=== PATIENT | female | born 1965 | race Caucasian/White ===

== ENCOUNTER → 2020-09-03 | Outpatient (CLI) | payer BC, MEDICARE ==
[~2020-09-03] MED LIST: ASCO125T PO; ESCITALOPRAM OX10 MG PO; HYDR-2759 PO; OMEG1CAP27 PO; PRED1TAB3 PO; VITA0.4T17 PO; hormone troche; vitamin D
== END ==
LOC: LAB 13:57
PROVIDERS: ATTEND Surgery
DX: Z01.812 Encounter for preprocedural laboratory examination (principal); K82.9 Disease of gallbladder, unspecified; Z88.5 Allergy status to narcotic agent; Z20.822 Contact with and (suspected) exposure to COVID-19
CPT/HCPCS: U0003

== ENCOUNTER 2020-09-06 07:50 | Day surgery (SDC) | payer BC, MEDICARE ==
[~2020-09-06] VITALS: Ht 167.6 cm; Wt 62.0 kg
[~2020-09-06 07:50] MED LIST changes: -HYDR-2759 PO; +HYDROmorphone 2 MG/ML VIAL IVP PRN; +MORPHINE SULFATE 2 MG/ML VIAL. IVP PRN; +PROCHLORPERAZINE 10 MG/2 ML VIAL. IVP PRN; +fentaNYL PF VIAL 100 MCG/2 ML VIAL IVP PRN
[2020-09-06] MEDS ORDERED: ROCURONIUM 50 MG/5 ML VIAL. ONE (08:07)
[2020-09-06] MEDS ORDERED: fentaNYL PF VIAL 100 MCG/2 ML VIAL ONE (08:07)
[2020-09-06] MEDS ORDERED: LIDOCAINE 2% PF 5 ML VIAL. ONE (08:08)
[2020-09-06] MEDS ORDERED: MIDAZOLAM HCL/PF 2 MG/2 ML VIAL. ONE (08:08)
[2020-09-06] MEDS ORDERED: KETOROLAC 30 MG/ML VIAL. ONE (08:08)
[2020-09-06] MEDS ORDERED: DEXAMETHASONE SOD PHOS 4 MG/ML VIAL ONE (08:08)
[2020-09-06] MEDS ORDERED: ONDANSETRON PF 4 MG/2 ML VIAL. ONE (08:08)
[2020-09-06] MEDS ORDERED: PROPOFOL 10 MG/ML (20ML) VIAL. IV ONE (08:08)
[2020-09-06] MEDS ORDERED: SEVOFLURANE 61 TO 120 MINUTES. IH ONE (08:09)
[2020-09-06] MEDS: IV RINGERS,LACTATED 1000ML 1,000 ML IV SCH ×2 (08:16→10:39)
[2020-09-06] MEDS ORDERED: SURGICEL HEMOSTAT 4X8 EACH. ONE (08:37)
[2020-09-06] MEDS ORDERED: IOHEXOL 300 MG/ML 50 ML VIAL. ONE (08:37)
[2020-09-06] MEDS ORDERED: BUPIVACAINE MPF 0.5% 30 ML VIAL. ONE (08:37)
[2020-09-06] MEDS ORDERED: GLYCOPYRROLATE 1 MG/5 ML VIAL. ONE (08:58)
[2020-09-06] MEDS ORDERED: NEOSTIGMINE METHYLSULFATE 5 MG/5 ML SYRINGE. ONE (08:58)
[2020-09-06] MEDS ORDERED: SUGAMMADEX SODIUM 200 MG/2 ML VIAL. IVP ONE (09:30)
--- NOTE | 2020-09-06 09:39 | PDOC4 ---
Operative Note Operative Note Operative Note: Preoperative Diagnosis: Chronic cholecystitis Postoperative Diagnosis: Same Procedure: Laparoscopic cholecystectomy with intraoperative cholangiogram Surgeons: Dejuan Podiatric Physician: Sanju POLLOCK Anesthesia: Gen. Estimated Blood Loss: 10 mL Specimen: Gallbladder to pathology Drains: None Complications: None Indications: The patient is a 55-year-old female who underwent evaluation for right-sided abdominal pain. A HIDA scan was performed that raise concern for chronic cholecystitis. Surgical treatment was offered by means of a laparo scopic cholecystectomy. The risks of surgery were discussed which include bleeding, infection, bile duct injury, bile leak, pain, the potential for additional surgeries or procedures. The patient understands and would like to proceed. Description: The patient was taken to the operating room and laid supine on the operating table. General anesthesia was performed. The abdomen was prepped with ChloraPrep and draped in a standard surgical fashion. A small infraumbilical incision was made with a scalpel. The Veress needle was then inserted and a pneumoperitoneum was then created. A 5 mm trocar was then inserted and the laparoscope was introduced. In the upper midabdomen a 5 mm trocar was inserted and in the right upper quadrant two 2.3 mm mini lap graspers were inserted. The gallbladder was retracted cephalad. The cystic duct was dissected free from surrounding tissues. One clip was placed on the duct near the gallbladder junction. An opening was made in the duct and a cholangiocatheter placed within and secured with a clip. Using contrast dye and fluoroscopy an intraoperative cholangiogram was performed that appeared unre markable. The clip and catheter were then withdrawn. Three clips were placed on the cystic duct and it was divided. The cystic artery was then identified, dissected free, doubly clipped and divided as well. The gallbladder was then mobilized away from the liver with cautery. The umbilical 5 millimeter trocar was exchanged for an 11 millimeter trocar. The gallbladder was then placed in an endoscopic bag and extracted at the umbilical trocar site. The fascia there was closed with an 0 Vicryl suture and infiltrated with 0.5% marcaine. All blood and irrigation fluid was suctioned and hemostasis was good. The remaining ports were removed and the pneumoperitoneum was relieved. The skin incisions were closed using 4-0 Monocryl suture. Steri-Strips and dressings were then applied. The patient tolerated the procedure well and was sent to the recovery room in stable condition. At the end of the case all counts were correct. JENNIFER LEAL MD Sep 06, 2020 09:39
--- NOTE | 2020-09-06 09:41 | DISCH ---
DISCHARGE INSTRUCTIONS Condition on Discharge Condition on Discharge: Stable Activity After Discharge Activity Instructions for Disc: Other, see below (No lifting over 20 lbs, s trenuous activity X 2 weeks) Driving Instructions after Dis: Other, see below (No driving while taking pain meds) Diet after Discharge Diet after Discharge: Regular Wound Incision Care Wound/Incision Care: Other, see below (may remove bandaids tomorrow and shower, steristrips fall of by themselves) Follow-Up Follow up with: Dr Leal in 2 weeks in office, call for appointment [phone] JENNIFER LEAL MD Sep 06, 2020 09:41
--- NOTE | 2020-09-06 09:42 | RAD ---
Intraoperative cholangiogram INDICATION: Cholangiogram in OR with C-arm. COMPARISON: None. FINDINGS: A total of 16 seconds of fluoroscopy time was provided with acquisition of 2 images during intraopera tive cholangiography. 2 images show filling of the common bile duct and portions of the intrahepatic biliary tree as well as evidence of partial filling of the pancreatic duct. There is opacification of the descending duodenum. IMPRESSION: No evidence of a stone in the common bile duct. Electronically signed by: Casey Alberto MD (09/06/2020 9:40 AM) [id number]
[2020-09-06] MEDS ORDERED: HYDR-2759 PO (10:00)
[2020-09-06] MEDS ORDERED: HYDROcodone/APAP 5/325MG 1 TAB TABLET PO ONE ×2 (10:00)
[2020-09-06] MEDS: fentaNYL PF VIAL 100 MCG/2 ML VIAL IVP PRN ×4 (10:04→10:42)
[2020-09-06 11:20] VITALS: BP 110/66
--- NOTE | 2020-09-07 16:06 | PATHOLOGY ---
[facility] Accession Number: [id number] . 01 Material submitted: . gallbladder - GALLBLADDER AND CONTENTS . 01 Clinical history: . GALLBLADDER DISEASE CHOLECYSTECTOMY . 02 Diagnosis: Gallbladder, cholecystectomy: - Chronic cholecystitis. (M:[facility] 09/07/2020) [facility] 09/07/2020 1327 Local . 02 Comment: There are no calculi identified within the gallbladder lumen or specimen container. There is no evidence of malignancy. (M:[facility] 09/07/2020) . 02 Electronically signed: . Tee Devlin MD, Pathologist NPI- [id number] . 01 Gross description: . The specimen is received in formalin, labeled "Jojo Ferraro gallbladder and contents" and consists of a 6 x 2.5 x 2 cm soft hsah green gallbladder with cystic duct luminal diameter of 0.1 cm. The cystic duct margin is inked black. On opening, no stones are identified. Green viscous bile is noted. The mucosa is velvety with prominent submucosal vessels. The wall measures up to 0.2 cm. Rod Hanger sections are submitted in cassette A1.([facility]; 09/06/2020) [facility] 09/07/2020 1325 Local . 02 Pathologist provided ICD-10: K81.1 . 02 CPT . 084423 Specimen Comment: A courtesy copy of this report has been sent to [phone], [phone] Specimen Comment: [id number] Specimen Comment: Report sent to / DR LEE Performed at: 01 [facility] [address], [place], [place] [id number] MD Eric España MD Phone: [phone] Performed at: 02 [facility] [address], [place] [id number] MD Tee Devlin MD Phone: [phone]
== END 2020-09-06 14:30 | disposition home or self-care (01) ==
LOC: SURG 07:50 → EDUNIT# 09:30 → SURG 14:30
PROVIDERS: ATTEND Surgery
DX: K81.1 Chronic cholecystitis (principal); Z79.899 Other long term (current) drug therapy; Z98.890 Other specified postprocedural states; Z72.89 Other problems related to lifestyle; Z88.8 Allergy status to other drugs, medicaments and biological substances; Z88.5 Allergy status to narcotic agent
CPT/HCPCS: 47563; 74300; A4213; A4314; A4364; A4930; A6219; C1887; J0690; J1100; J1885; J2250; J2405; J2704; J3010; J3490; Q9967; 88304; A4452; A4657; J2710

== ENCOUNTER 2020-09-17 15:14 | Emergency (ER) | payer BC, MEDICARE ==
[~2020-09-17] VITALS: Ht 167.6 cm; Wt 61.8 kg
[~2020-09-17 15:14] MED LIST changes: +HYDR-2759 PO; -HYDROmorphone 2 MG/ML VIAL IVP PRN; -MORPHINE SULFATE 2 MG/ML VIAL. IVP PRN; -PROCHLORPERAZINE 10 MG/2 ML VIAL. IVP PRN; -fentaNYL PF VIAL 100 MCG/2 ML VIAL IVP PRN
--- NOTE | 2020-09-17 15:50 | ED.ADGEN ---
General Adult EDM: Chief Complaint: ABDOMINAL PAIN HPI: HPI: Patient is a 55 year old female coming in for evaluation of worsening postop abdominal pain. Patient had a cholecystectomy without complication September [address] Leal. Patient states she been feeling better and back to normal and was not taking more pain medications but 5 days ago started having worsening right upper quadrant abdominal pain, decreased appetite, "clammy feeling", and found she had a low-grade temp. Symptoms started in the afternoon after she had had a bowel movement and went to go eat something. Now states that the pain is worse when she eats. Last p.o. intake 2 hours ago. Patient had a small bowel movement 3 days ago but has not had anything else since. Denies any vomiting. Has had intermittent low-grade fevers since 5 days ago. Went to her regular postop appointment today and was told to come to the ER due to concern for a bile leak. Review of Systems: Review of Systems: All other systems within normal limits except for as noted in the HPI Current Medications: Current Medications Medications (Trade) Dose Ordered Sig/Flor Start Time Stop Time Status Last Admin Dose Admin Iohexol (Omnipaque 240 Mg/ml) 30 ml 1X ONCE 09/17/20 16:45 09/17/20 16:46 DC 09/17/20 17:13 30 ML Iohexol (Omnipaque 300 Mg/ml) 75 ml 1X ONCE 09/17/20 16:45 09/17/20 16:46 DC 09/17/20 17:13 75 ML Allergies: Allergies: Allergies Coded Allergies Type Severity Reaction Last Updated Verified codeine Allergy Unknown Itching 09/06/20 Yes hydroxychloroquine Allergy Unknown bothers her eyes 09/06/20 Yes Physical Exam: PE: Constitutional: Well developed, well nourished, no acute distress, non-toxic appearance. [] HENT: Normocephalic, atraumatic, bilateral external ears normal, nose normal. [] Eyes: PERRLA, conjunctiva normal, no discharge. [] Neck: No rigidity, supple, no stridor. [] Cardiovascular: Regular rate and rhythm, brisk cap refill [] Lungs & Thorax: Non labored symmetric respirations, no tachypnea or respiratory distress [] Abdomen: Soft, nondistended, tenderness in bilateral upper quadrants, no rebound. Skin: Surgical incisions clean and dry. No discharge. Surrounding macular rash with urticaria. [] Back: Unremarkable Extremities: No deformities, range of motion grossly intact, no lower extremity edema [] Neurologic: Alert and oriented X 3, no focal deficits noted. [] Psychologic: Affect normal, judgement normal, mood normal. [] Current Patient Data: Labs: Laboratory Tests Test 09/17/20 16:00 09/17/20 16:05 Urine Collection Type Unknown Urine Color Yellow Urine Clarity Clear Urine pH 6.0 (<5.0-8.0) Urine Specific Dorrance <=1.005 (1.000-1.030) Urine Protein Negative mg/dL (NEG-TRACE) Urine Glucose (UA) Negative mg/dL (NEG) Urine Ketones (Stick) Negative mg/dL (NEG) Urine Blood Negative (NEG) Urine Nitrite Negative (NEG) Urine Bilirubin Negative (NEG) Urine Urobilinogen Dipstick 0.2 mg/dL (0.2 mg/dL) Urine Leukocyte Esterase Moderate (NEG) Urine RBC 0 /HPF (0-2) Urine WBC 5-10 /HPF (0-4) Urine Squamous Epithelial Cells Few /LPF Urine Bacteria 0 /HPF (0-FEW) Urine Test Negative (NEG) White Blood Count 8.1 x10^3/uL (4.0-11.0) Red Blood Count 4.63 x10^6/uL (3.50-5.40) Hemoglobin 14.9 g/dL (12.0-15.5) Hematocrit 43.9 % (36.0-47.0) Mean Corpuscular Volume 95 fL (79-100) Mean Corpuscular Hemoglobin 32 pg (25-35) Mean Corpuscular Hemoglobin Concent 34 g/dL (31-37) Red Cell Distribution Width 12.1 % (11.5-14.5) Platelet Count 350 x10^3/uL (140-400) Neutrophils (%) (Auto) 68 % (31-73) Lymphocytes (%) (Auto) 22 % (24-48) L Monocytes (%) (Auto) 5 % (0-9) Eosinophils (%) (Auto) 4 % (0-3) H Basophils (%) (Auto) 1 % (0-3) Neutrophils # (Auto) 5.5 x10^3/uL (1.8-7.7) Lymphocytes # (Auto) 1.8 x10^3/uL (1.0-4.8) Monocytes # (Auto) 0.4 x10^3/uL (0.0-1.1) Eosinophils # (Auto) 0.3 x10^3/uL (0.0-0.7) Basophils # (Auto) 0.1 x10^3/uL (0.0-0.2) Sodium Level 139 mmol/L (136-145) Potassium Level 3.8 mmol/L (3.5-5.1) Chloride Level 102 mmol/L (98-107) Carbon Dioxide Level 30 mmol/L (21-32) Anion Gap 7 (6-14) Blood Urea Nitrogen 8 mg/dL (7-20) Creatinine 1.1 mg/dL (0.6-1.0) H Estimated GFR (Cockcroft-Gault) 51.8 BUN/Creatinine Ratio 7 (6-20) Glucose Level 80 mg/dL (70-99) Lactic Acid Level 1.2 mmol/L (0.4-2.0) Calcium Level 9.0 mg/dL (8.5-10.1) Total Bilirubin 1.2 mg/dL (0.2-1.0) H Direct Bilirubin 0.2 mg/dL (0.0-0.2) Aspartate Amino Transferase (AST) 27 U/L (15-37) Alanine Aminotransferase (ALT) 31 U/L (14-59) Alkaline Phosphatase 96 U/L (46-116) Total Protein 7.8 g/dL (6.4-8.2) Albumin 4.1 g/dL (3.4-5.0) Albumin/Globulin Ratio 1.1 (1.0-1.7) Lipase 129 U/L (73-393) Laboratory Tests 09/17/20 16:05 Laboratory Tests 09/17/20 16:05 Vital Signs: Vital Signs Date Time Temp Pulse Resp B/P (MAP) Pulse Ox O2 Delivery O2 Flow Rate FiO2 09/17/20 17:47 66 109/68 (82) 100 Room Air 09/17/20 15:46 98.6 18 98.6 EKG: EKG: [] Heart Score: C/O Chest Pain: No Risk Factors: Risk Factors: DM, Current or recent (<one month) smoker, HTN, HLP, family history of CAD, obesity. Risk Scores: Score 0 - 3: 2.5% MACE over next 6 weeks - Discharge Home Score 4 - 6: 20.3% MACE over next 6 weeks - Admit for Clinical Observation Score 7 - 10: 72.7% MACE over next 6 weeks - Early Invasive Strategies Radiology/Procedures: Radiology/Procedures: CT abdomen and pelvis with contrast: Reason for examination: Postop pain. Gallbladder surgery 10 days ago. Helical images were obtained through the abdomen and pelvis with intravenous administration of 75 cc Omnipaque 300 and 30 cc Omnipaque 240 given orally. Reconstruction was performed in sagittal and coronal planes. Exposure: One or more of the following individualized dose reduction techniques were utilized for this examination: 1. Automated exposure control 2. Adjustment of the mA and/or kV according to patient size 3. Use of iterative reconstruction technique. The lung bases are clear. The heart size is normal with no pericardial effusion. No abnormality seen at the liver, spleen, adrenal glands or pancreas. Gallbladder is surgically absent. No abnormal fluid collections are seen at the gallbladder fossa. The abdominal aorta and inferior vena cava show no acute abnormalities. The colon shows no diverticulosis, diverticulitis or colitis. The appendix is surgically absent. The small intestinal tract shows no abnormal dilatation, wall thickening or obstruction. No abnormality seen at the stomach. The kidneys show no renal masses, renal calculi, hydronephrosis or evidence of obstructive uropathy. No abnormality seen at the bladder, uterus or ovaries. No free fluid or free air is seen in the abdomen or pelvis. IMPRESSION: Gallbladder is surgically absent and no abnormal fluid collections are seen at the gallbladder fossa post cholecystectomy. No acute abnormality seen in the abdomen or pelvis. [] Course & Med Decision Making: Course & Med Decision Making Pertinent Labs and Imaging studies reviewed. Discussed with on-call general surgeon, Dr. Goff, no findings of any urinary tract infection. Discussed treatment of urinary tract infection and increasing MiraLAX. Discussed no findings of surgical postop problem, discussed possibility of early findings, constipation, or possible surgical adhesions developing. Does return precautions and follow-up with her surgeon. Kenan Disclaimer: Kenan Disclaimer: This electronic medical record was generated, in whole or in part, using a voice recognition dictation system. Departure Departure Impression: Primary Impression: Abdominal pain Additional Impression: UTI (urinary tract infection) Disposition: 01 DC HOME SELF CARE/HOMELESS Condition: STABLE Referrals: SARAH LEE MD (PCP) JENNIFER LEAL MD Patient Instructions: Abdominal Pain (Nonspecific) Scripts Cephalexin (CEPHALEXIN) 500 Mg Tablet 1 TAB PO BID for antibiotic for 5 Days, #10 TAB Prov: STAS CALLE MD 09/17/20 Problem Qualifiers STAS CALLE MD Sep 17, 2020 15:50
[2020-09-17] MEDS ORDERED: IOHEXOL 300 MG/ML 100ML VIAL. IV ONE (16:45)
[2020-09-17] MEDS ORDERED: IOHEXOL 240 MG/ML 50ML VIAL. PO ONE (16:45)
[2020-09-17 16:46] LABS: BASO # 0.1 x10^3/uL (0.0-0.2); BASO % 1 % (0-3); EOS # 0.3 x10^3/uL (0.0-0.7); EOS % 4 % (0-3); HEMATOCRIT 43.9 % (36.0-47.0); HEMOGLOBIN 14.9 g/dL (12.0-15.5); LYMPH # 1.8 x10^3/uL (1.0-4.8); LYMPH % 22 % (24-48); MEAN CORPUSCULAR HEMOGLOBIN 32 pg (25-35); MEAN CORPUSCULAR HGB CONC 34 g/dL (31-37); MEAN CORPUSCULAR VOLUME 95 fL (79-100); MONO # 0.4 x10^3/uL (0.0-1.1); MONO % 5 % (0-9); NEUT # 5.5 x10^3/uL (1.8-7.7); NEUT % 68 % (31-73); PLATELET COUNT 350 x10^3/uL (140-400); RED BLOOD COUNT 4.63 x10^6/uL (3.50-5.40); RED CELL DISTRIBUTION WIDTH 12.1 % (11.5-14.5); WHITE BLOOD COUNT 8.1 x10^3/uL (4.0-11.0)
[2020-09-17 16:49] LABS: BILIRUBIN,URINE NEGATIVE (NEG); CLARITY,URINE CLEAR; COLOR,URINE YELLOW; NITRITE,URINE NEGATIVE (NEG); PROTEIN,URINE NEGATIVE (NEG-TRACE); U PREG PATIENT NEGATIVE (NEG); UROBILINOGEN,URINE 0.2 mg/dL (0.2 mg/dL)
[2020-09-17 16:57] LABS: RBC,URINE 0 /HPF (0-2)
[2020-09-17 16:58] LABS: CREATININE 1.1 mg/dL (0.6-1.0); GFR 51.8; POTASSIUM 3.8 mmol/L (3.5-5.1)
[2020-09-17 16:58] LABS: BACTERIA,URINE 0 /HPF (0-FEW)
[2020-09-17 17:04] LABS: ALBUMIN 4.1 g/dL (3.4-5.0); ALBUMIN/GLOBULIN RATIO 1.1 (1.0-1.7); DIRECT BILIRUBIN 0.2 mg/dL (0.0-0.2); TOTAL BILIRUBIN 1.2 mg/dL (0.2-1.0); TOTAL PROTEIN 7.8 g/dL (6.4-8.2)
--- NOTE | 2020-09-17 17:45 | RAD ---
CT abdomen and pelvis with contrast: Reason for examination: Postop pain. Gallbladder surgery 10 days ago. Helical images were obtained through the abdomen and pelvis with intravenous administration of 75 cc Omnipaque 300 and 30 cc Omnipaque 240 given orally. Reconstruction was performed in sagittal and carlos enrique nal planes. Exposure: One or more of the following individualized dose reduction techniques were utilized for thi s examination: 1. Automated exposure control 2. Adjustment of the mA and/or kV according to patient size 3. Use of iterative reconstruction technique. The lung bases are clear. The heart size is normal with no pericardial effusion. No abnormality seen at the liver, spleen, adrenal glands or pancreas. Gallbladder is surgically absen t. No abnormal fluid collections are seen at the gallbladder fossa. The abdominal aorta and inferior vena cava show no acute abnormalities. The colon shows no diverticulosis, diverticulitis or colitis. The appendix is surgically absent. The small intestinal tract shows no abnormal dilatation, wall thic kening or obstruction. No abnormality seen at the stomach. The kidneys show no renal masses, renal ca lculi, hydronephrosis or evidence of obstructive uropathy. No abnormality seen at the bladder, uterus or ovaries. No free fluid or free air is seen in the abdom en or pelvis. IMPRESSION: Gallbladder is surgically absent and no abnormal fluid collections are seen at the gallbladder fossa post cholecystectomy. No acute abnormality seen in the abdomen or pelvis. Electronically signed by: Fatuma Spicer MD (09/17/2020 5:43 PM) HUMA
[2020-09-17 17:47] VITALS: BP 109/68
[2020-09-17] MEDS ORDERED: CEPH500T PO (18:07)
== END 2020-09-17 18:16 | disposition home or self-care (01) ==
LOC: ER 15:14
DX: N39.0 Urinary tract infection, site not specified (principal); Z90.49 Acquired absence of other specified parts of digestive tract; Z88.5 Allergy status to narcotic agent; Z88.8 Allergy status to other drugs, medicaments and biological substances
CPT/HCPCS: 36415; 74177; 80053; 81001; 81025; 82248; 83605; 83690; 85025; 87040; 87086; 99285; Q9966; Q9967